=== PATIENT | male | born 1965 | race American Indian/Alaskan Native ===

== ENCOUNTER 2018-12-22 09:52 | Emergency (ER) | payer OTHER ==
--- NOTE | 2018-12-22 10:58 | XRay Report ---
RIGHT SHOULDER, 3 VIEWS: HISTORY: right shoulder pain. Normal bone mineralization. No acute osseous injury is detected. Moderate osteoarthritis is noted at the acromioclavicular joint. The soft tissues are unremarkable. IMPRESSION: Acromioclavicular osteoarthritis. No acute injury is identified.
[2018-12-22] MEDS ORDERED: IBUPROFEN PO ONE (11:51)
[2018-12-22] MEDS ORDERED: NORCO 5/325 PO ONE (11:51)
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
[2018-12-22 12:55] VITALS: BP 180/85
== END 2018-12-22 12:52 | disposition home or self-care (01) ==
LOC: ED 09:52
DX: M25.511 Pain in right shoulder (principal); M54.2 Cervicalgia; M79.10 Myalgia, unspecified site; V87.7XXA Person injured in collision between other specified motor vehicles (traffic), initial encounter; Y93.89 Activity, other specified; Y92.488 Other paved roadways as the place of occurrence of the external cause; Y99.8 Other external cause status
CPT/HCPCS: 99284